=== PATIENT | male | born 2000 | race Caucasian/White ===

== ENCOUNTER 2023-03-28 06:36 | Observation (INO) | payer BC ==
[2023-03-28] MEDS ORDERED: Calcium Carbonate 500 MG ChewTAB PO PRN (09:18)
[2023-03-28] MEDS ORDERED: Acetaminophen 325 MG TAB PO PRN (09:18)
[2023-03-28] MEDS ORDERED: Ondansetron ODT 4 MG TAB PO PRN (09:18)
[2023-03-28] MEDS ORDERED: Senokot S 8.6-50 MG TAB PO PRN (09:18)
[2023-03-28] MEDS ORDERED: Metoprolol Tartrate 25 MG TAB PO SCH ×2 (09:45→21:00)
[2023-03-28] MEDS: Aspirin 81 mg Enteric Coated Tablet PO SCH ×2 (10:02→10:40)
[2023-03-28 10:07] VITALS: BP 143/63; TEMP 98.8; BMI 31.4
[2023-03-28 11:07] LABS: Troponin I Less than 0.010 ng/mL (< 0.028)
[2023-03-28] MEDS ORDERED: FLU VACC QS2023-24(6MOS UP)/PF 60 MCG/0.5 ML SYRINGE IM ONE (12:00)
[2023-03-29] MEDS ORDERED: Aspirin 81 mg Enteric Coated Tablet PO SCH (09:00)
== END 2023-03-28 13:55 | disposition home or self-care (01) ==
LOC: INTOOBSV 08:45 → CSHICU 08:45
PROVIDERS: ADMIT Internal Medicine; ATTEND Internal Medicine
DX: I48.0 Paroxysmal atrial fibrillation (principal); I08.1 Rheumatic disorders of both mitral and tricuspid valves; F17.200 Nicotine dependence, unspecified, uncomplicated
CPT/HCPCS: 36415; 80307; 93306

== ENCOUNTER 2024-06-24 16:40 | Emergency (ER) | payer BC | END 2024-06-24 17:49 | disposition home or self-care (01) | LOC: CSHERS 16:40 | DX: B34.9 Viral infection, unspecified (principal); F17.200 Nicotine dependence, unspecified, uncomplicated ==